=== PATIENT | female | born 1965 | race Caucasian/White ===

== ENCOUNTER 2024-06-21 10:44 | Emergency (ER) | payer MEDICARE ==
[2024-06-21] MEDS ORDERED: NA CHLORIDE 0.9% 1,000 ML ONE (11:43)
[2024-06-21] MEDS ORDERED: KETAMINE HCL IN 0.9 % NACL 50 MG/5 ML SYRINGE IV ONE (12:00)
[2024-06-21 12:09] LABS: Absolute Basophils 0.1 K/uL (0-0.5); Absolute Eosinophils 0.1 K/uL (0-0.5); Absolute Lymphocytes (CBC) 0.5 K/uL (0.7-4.9); Absolute Neutrophil 7.5 K/uL (1.8-8.0); Basophils % 0.9 % (0-1.3); Eosinophils % 0.7 % (0-4.4); Hematocrit 30.1 % (36.0-45.0); Lymphocytes % 5.1 % (15.3-44.8); MCH 24.4 pg (27.0-35.0); MCHC 33.4 g/dL (32.0-36.0); MPV 7.5 fL (7.6-11.3); Monocytes % 11.4 % (3.3-12.3); Neutrophils % 81.9 % (41.7-73.7); Nucleated Red Blood Cells % 0.2 % (0-0); Platelets 363 thou/uL (152-406); RBC Red Blood Cell Count 4.12 M/uL (3.86-4.86); Red Cell Distribution Width 18.5 % (12.1-15.2)
[2024-06-21 12:26] LABS: Albumin 2.7 g/dL (3.4-5.0); Albumin/Globulin Ratio 0.6 (1.1-1.8); Anion Gap 9.3 mEq/L (5.0-15.0); Bilirubin Total 0.6 mg/dL (0.2-1.0); Globulin 4.9 g/dL (2.3-3.5); Potassium 4.3 mEq/L (3.5-5.1); Protein, Total 7.6 g/dL (6.4-8.2)
[2024-06-21] MEDS ORDERED: FENTANYL CITR 100 MCG/2 ML ONE (12:46)
--- NOTE | 2024-06-21 12:48 | RAD REPORT ---
EXAMINATION: CT Abdomen Pelvis W Contrast CLINICAL INDICATION: Female, 58 years old. ABD PAIN TECHNIQUE: CT abdomen and pelvis was performed, after the administration of IV contrast, [facility]. Axial, sagittal and coronal reconstructions were obtained. One or more of the following dose reduction techniques were used: Automated exposure control, adjustment of the mA and k V according to patient size, and iterative reconstruction. Unless otherwise specified, incidental findings do not require dedicated imaging follow-up. COMPARISON: No prior exam. FINDINGS: LOWER CHEST: The visualized lung bases are clear. LIVER: Normal in size and contour. No focal lesion. BILIARY SYSTEM: No suspicious abnormalities. SPLEEN: Diffuse splenomegaly, with spleen measuring 18.9 cm in long [place], with no focal lesions. PANCREAS: No mass, ductal dilation, or jose-pancreatic fluid. ADRENALS: Normal; no mass. KIDNEYS: Normal size and contour. No hydronephrosis. Small subcentimeter left cortical hypoattenuatin g lesions, suggestive of cysts, not well characterized. URINARY BLADDER: Decompressed limiting evaluation. GASTROINTESTINAL TRACT: No evidence of free air, significant intra-abdominal free fluid, bowel obstru ction or abscess. Sigmoid diverticulosis without evidence of acute diverticulitis. APPENDIX: Normal appendix, retrocecal. LYMPH NODES: Bulky matted retroperitoneal lymph nodes, with the largest jackelyn mass seen in the left u pper para-aortic space measuring 5.2 x 4.9 cm. Largest mass at the level of the left common iliac artery measures 4.0 x 3.4 cm. Largest mass at the level of the right common iliac artery measures 2.9 x 2.4 cm. Enlarged epigastric nodes as well largest measuring 2.1 x 2.7 cm. Enlarged darlin hepatis nodes largest measuring 2.9 x 2.7 cm. Enlarged bilateral pelvic sidewall/iliac chain lymph nodes larg est on the right measuring 3.7 x 2.1 cm, and on the left measuring 3.3 x 1.8 cm. Nodular deposits along the posterior right perinephric fascia, measuring 1.8 x 1.4 cm. Enlarged mesenteric lymph nodes largest at the root measuring 3.5 x 2.5 cm. The nodes encase aortic branches and IVC tributaries, with some segmental narrowing but no discrete occlusion. Enlarged posterior mediastinal nodes along t he lower descending thoracic aorta largest on the right measures 1.7 cm. Enlarged epicardial lymph node measuring 1.3 cm. Small inguinal lymph nodes, largest on the left measuring up to 9 mm in short axis. MUSCULOSKELETAL: No acute or suspicious osseous abnormality. ADDITIONAL FINDINGS: None. IMPRESSION: Bulky adenopathy throughout the retroperitoneum, mesentery, right perinephric space, posterior medias tinum, and epicardial space, with splenomegaly, concerning for a lymphoproliferative disorder such as lymphoma. No other acute findings. Incidental findings including sigmoid diverticulosis.
--- NOTE | 2024-06-21 14:06 | EDPHYS ---
Physician Documentation [facility] Name: María Elena Villegas Age: 58 yrs Sex: Female : 1965 Arrival Date: 06/21/2024 Time: 10:44 Bed 15 Private MD: ED Physician Hugo Mosqueda HPI: 06/21 14:06 This 58 yrs old Female presents to ER via Ambulatory with complaints of Abdominal Pain, ms3 Back Pain. 14:06 58-year-old female with past medical history of breast cancer, vulvar cancer, basal ms3 cell cancer, lymphoma presents to the emergency department for abdominal pain back pain that began on June 09. Patient states she had a colonoscopy that was performed on June 08. Patient was sent from Dr. Swain's office for abdominal pain and concern for bowel perforation. Patient endorses nausea. Patient denies vomiting or chills. Patient states her pain is a 10/10 . Historical: - Allergies: 11:27 Codeine; iw 11:27 Hydrocodone-Acetaminophen; iw - PMHx: 11:27 breast cancer; vulvar cancer; basal cell cancer; iw - PSHx: 11:27 lumpectomy-left; stents in legs; iw - Immunization history:: Adult Immunizations unknown. - Infectious Disease History:: Denies. - Social history:: Smoking status: unknown. ROS: 14:06 Constitutional: Negative for fever, and chills. Cardiovascular: Negative for chest ms3 pain, and palpitations. Respiratory: Negative for shortness of breath, cough, wheezing, and pleuritic chest pain, 14:06 MS/Extremity: Negative for injury and deformity, Skin: Negative for injury, rash, and discoloration, 14:06 Abdomen/GI: Positive for abdominal pain, nausea, 14:06 Back: Positive for back pain, Exam: 14:06 Constitutional: This is a well developed, well nourished patient who is awake, alert, ms3 and in no acute distress. Cardiovascular: Regular rate and rhythm with a normal S1 and S2. No gallops, murmurs, or rubs. Normal PMI, no JVD. No pulse deficits. Respiratory: Lungs have equal breath sounds bilaterally, clear to auscultation and percussion. No rales, rhonchi or wheezes noted. No increased work of breathing, no retractions or nasal flaring. Skin: Warm, dry with normal turgor. Normal color with no rashes, no lesions, and no evidence of cellulitis. 14:06 Abdomen/GI: Inspection: abdomen appears normal, Bowel sounds: normal, Palpation: moderate abdominal tenderness, in all quadrants, Vital Signs: 11:31 BP 130 / 67; Pulse 94; Resp 16; Temp 98.1; Pulse Ox 99% ; Weight 58.97 kg; Height 5 ft. iw 4 in. ; Pain 10/10; 12:04 Pulse 91; Resp 18; Pulse Ox 98% on R/A; ph 13:40 BP 121 / 67; Pulse 95; Resp 18; Pulse Ox 100% on R/A; ph 14:30 BP 132 / 68; Pulse 91; Resp 18; Pulse Ox 99% on R/A; ph 11:31 Body Mass Index 22.31 (58.97 kg, 162.56 cm) iw 11:31 Pain Scale: Adult iw MDM: 11:45 Medical Screening Exam initiated ms3 14:06 Differential diagnosis: Neoplasm Bowel perforation vs Obstruction. Data reviewed: vital ms3 signs, nurses notes, lab test result(s), radiologic studies, and as a result, I will discharge patient. Management of patient was discussed with the following: Creative Writing Teacher: Dr Mckeon- Recommends 25 mcg Fentanyl patch and he will see patient in clinic. Discussed case with Dr Swain- no bowel perforation.. I considered the following discharge prescriptions or medication management in the emergency department Medications were administered in the Emergency Department. See MAR. Historians other than the Patient: Spouse/Significant Other: Patient's . Counseling: I had a detailed discussion with the patient and/or guardian regarding the historical points, exam findings, and any diagnostic results supporting the discharge/admit diagnosis, lab results, radiology results, the need for outpatient follow up, to return to the emergency department if symptoms worsen or persist or if there are any questions or concerns that arise at home. Special discussion: Based on the patient's Hx, exam, and Dx evaluation, there is no indication for emergent surgery or inpatient Tx. It is understood by the patient/guardian that if the Sx's persist or worsen they need to return immediately for re-evaluation. ED course: On reevaluation patient is alert and oriented x 4, no apparent distress, nontoxic-appearing, speaking full sentences. Pain improved at this time. Discussed labs, imaging with the patient and her . Mild anemia on CBC. No signs of infection at this time. Patient to follow-up with Dr. Collado in 1-2 days. All questions were answered. Return precautions discussed include worsening symptoms, or any other concerns.. 06/21 11:45 Order name: CBC with Diff; Complete Time: 12:45 ms3 06/21 11:45 Order name: CMP; Complete Time: 12:45 ms3 06/21 11:45 Order name: Lipase; Complete Time: 12:45 ms3 06/21 11:46 Order name: CT Abd/Pelvis - IV Contrast Only; Complete Time: 12:49 ms3 06/21 11:27 Order name: Labs collected and sent; Complete Time: 12:05 ms3 06/21 11:27 Order name: O2 Per Protocol; Complete Time: 12:05 ms3 06/21 11:27 Order name: O2 Sat Monitoring; Complete Time: 12:05 ms3 06/21 11:27 Order name: Vital Signs; Complete Time: 12:05 ms3 06/21 11:45 Order name: IV Saline Lock; Complete Time: 12:04 ms3 06/21 11:45 Order name: Labs collected and sent; Complete Time: 12:04 ms3 Administered Medications: 12:13 Drug: NS 0.9% IV (30 ml/kg) 30 ml/kg IV at bolus once; Sepsis Protocol; to be given as ph a bolus over 90 minutes Route: IV; Rate: bolus; Site: right antecubital; 13:30 Follow up: Response: No adverse reaction; IV Status: Completed infusion; IV Intake: ph 1000ml 12:13 Drug: Ketamine IVP 10 mg IVP once Route: IVP; Site: right antecubital; ph 14:50 Follow up: Response: No adverse reaction ph 12:52 Drug: fentaNYL (PF) IVP 50 mcg IVP once Route: IVP; Site: right antecubital; ph 14:50 Follow up: Response: No adverse reaction ph 14:15 Drug: fentaNYL Transdermal Patch (25 mcg/hr) 1 patches Transdermal once Route: ph Transdermal; Site: anterior chest wall; 14:51 Follow up: Response: No adverse reaction ph Disposition Summary: 06/21/24 14:05 Discharge Ordered Notes: Location: Home ms3 Condition: Stable ms3 Diagnosis - Abdominal pain, Generalized ms3 - Lymphoma ms3 Followup: ms3 - With: Private Physician - When: 1 - 2 days - Reason: Re-evaluation by your physician Discharge Instructions: - Discharge Summary Sheet ms3 - Abdominal Pain, Adult ms3 Forms: - Medication Reconciliation Form ms3 - Antibiotic Education ms3 - Prescription Opioid Use ms3 - Patient Portal Instructions ms3 - Leadership Thank You Letter ms3 Prescriptions: - Narcan 4 mg/actuation Nasal spray, non-aerosol - spray 1 spray INTRANASAL route every 2 minutes spray 1 dose into ONE nostril; ms3 alternate nostrils w each dose until help arrives; 1 unit; Refills: 0, Product Selection Permitted Signatures: Dispatcher [employer] Billie Santacruz RN RN iw Jenni Diaz RN RN Hugo Herron DO DO ms3 Corrections: (The following items were deleted from the chart) 11:35 11:27 Accucheck ordered. ms3 bd 11:35 11:27 IV Saline Lock - Large Bore ordered. ms3 bd 11:35 11:33 IV Saline Lock ordered. ms3 bd 11:36 11:27 EKG - Nurse/Tech ordered. ms3 bd 11:39 11:27 CBC+H.LAB.BRZ ordered. EDMS EDMS 11:39 11:27 COMPREHENSIVE METABOLIC PANEL+C.LAB.BRZ ordered. EDMS EDMS 11:39 11:27 LACTATE+C.LAB.BRZ ordered. EDMS EDMS 11:39 11:27 PROTIME (+INR)+COAG.LAB.BRZ ordered. EDMS EDMS 11:39 11:27 PTT, ACTIVATED+COAG.LAB.BRZ ordered. EDMS EDMS 11:40 11:27 BLOOD CULTURE*+BA.LAB.BRZ ordered. EDMS EDMS 11:40 11:27 Urinalysis+U.LAB.BRZ ordered. EDMS EDMS 11:48 11:33 Abdomen Pelvis W Con+CT.RAD.BRZ ordered. EDMS EDMS 14:15 14:06 ED course: Discussed labs, imaging with the patient and her . Mild anemia ms3 on CBC. No signs of infection at this time. All questions were answered. Return precautions discussed include worsening symptoms, or any other concerns.. ms3
--- NOTE | 2024-06-21 14:06 | ER ---
Nurse's Notes [facility] Name: María Elena Villegas Age: 58 yrs Sex: Female : 1965 Arrival Date: 06/21/2024 Time: 10:44 Bed 15 Private MD: Diagnosis: Abdominal pain, Generalized;Lymphoma Presentation: 06/21 11:29 Chief complaint: Patient states: has had back pain since her colonoscopy on June 08 iw , hx of breast cancer, vulvar cancer, basal cell carcinoma, she's had previous polyps removed , they snipped some polyps this time, was done at [facility] . Dr. Mckeon, thought there was an issue with her kidneys. Coronavirus screen: At this time, the client does not indicate any symptoms associated with coronavirus-19. Ebola Screen: No symptoms or risks identified at this time. Initial Sepsis Screen: Does the patient meet any 2 criteria? No. Patient's initial sepsis screen is negative. Does the patient have a suspected source of infection? No. Patient's initial sepsis screen is negative. Risk Assessment: Do you want to hurt yourself or someone else? Patient reports no desire to harm self or others. 11:29 Method Of Arrival: Ambulatory iw 11:29 Acuity: GEORGIE 3 iw 11:31 Onset of symptoms was June 08, 2024. iw Historical: - Allergies: 11:27 Codeine; iw 11:27 Hydrocodone-Acetaminophen; iw - PMHx: 11:27 breast cancer; vulvar cancer; basal cell cancer; iw - PSHx: 11:27 lumpectomy-left; stents in legs; iw - Immunization history:: Adult Immunizations unknown. - Infectious Disease History:: Denies. - Social history:: Smoking status: unknown. Screenin:02 [facility] ED Fall Risk Assessment (Adult) History of falling in the last 3 months, ph including since admission No falls in past 3 months (0 pts) Confusion or Disorientation No (0 pts) Intoxicated or Sedated No (0 pts) Impaired Gait No (0 pts) Mobility Assist Device Used No (0 pt) Altered Elimination No (0 pt) Score/Fall Risk Level 0 - 2 = Low Risk Oriented to surroundings, Maintained a safe environment, Hourly rounding (assess needs \T\ fall precautionary measures) done. Abuse screen: Denies threats or abuse. Denies injuries from another. Nutritional screening: No deficits noted. Tuberculosis screening: No symptoms or risk factors identified. Assessment: 12:03 General: Appears in no apparent distress. uncomfortable, well groomed, Behavior is ph calm, cooperative, appropriate for age. Pain: Complains of pain in back and abdomen. Neuro: Level of Consciousness is awake, alert, obeys commands, Oriented to person, place, time, situation. Cardiovascular: Capillary refill < 3 seconds in bilateral fingers Patient's skin is warm and dry. Respiratory: Airway is patent Respiratory effort is even, unlabored. GI: Abdomen is round non-distended, Bowel sounds present X 4 quads. Abd is soft X 4 quads Reports lower abdominal pain, upper abdominal pain. Derm: Skin is pink, warm \T\ dry. Vital Signs: 11:31 BP 130 / 67; Pulse 94; Resp 16; Temp 98.1; Pulse Ox 99% ; Weight 58.97 kg; Height 5 ft. iw 4 in. ; Pain 10/10; 12:04 Pulse 91; Resp 18; Pulse Ox 98% on R/A; ph 13:40 BP 121 / 67; Pulse 95; Resp 18; Pulse Ox 100% on R/A; ph 14:30 BP 132 / 68; Pulse 91; Resp 18; Pulse Ox 99% on R/A; ph 11:31 Body Mass Index 22.31 (58.97 kg, 162.56 cm) iw 11:31 Pain Scale: Adult iw ED Course: 10:46 Patient arrived in ED. mr 11:09 Hugo Mosqueda DO is Attending Physician. ms3 11:31 Triage completed. iw 11:32 Arm band placed on. iw 11:41 Jenni Diaz, RN is Primary Nurse. ph 12:02 Initial lab(s) drawn, by az, sent to lab. Inserted saline lock: 20 gauge in right ph antecubital area, using aseptic technique. Blood collected. Flushed with 10 mL NS. 12:03 Patient has correct armband on for positive identification. Bed in low position. Call ph light in reach. Side rails up X 1. Pulse ox on. NIBP on. Door closed. Noise minimized. Warm blanket given. 12:04 CBC with Diff Sent. ph 12:04 CMP Sent. ph 12:04 Lipase Sent. ph 12:05 CT Abd/Pelvis - IV Contrast Only In Process Unspecified. EDMS 14:51 No provider procedures requiring assistance completed. IV discontinued, intact, ph bleeding controlled, No redness/swelling at site. Pressure dressing applied. Administered Medications: 12:13 Drug: NS 0.9% IV (30 ml/kg) 30 ml/kg IV at bolus once; Sepsis Protocol; to be given as ph a bolus over 90 minutes Route: IV; Rate: bolus; Site: right antecubital; 13:30 Follow up: Response: No adverse reaction; IV Status: Completed infusion; IV Intake: ph 1000ml 12:13 Drug: Ketamine IVP 10 mg IVP once Route: IVP; Site: right antecubital; ph 14:50 Follow up: Response: No adverse reaction ph 12:52 Drug: fentaNYL (PF) IVP 50 mcg IVP once Route: IVP; Site: right antecubital; ph 14:50 Follow up: Response: No adverse reaction ph 14:15 Drug: fentaNYL Transdermal Patch (25 mcg/hr) 1 patches Transdermal once Route: ph Transdermal; Site: anterior chest wall; 14:51 Follow up: Response: No adverse reaction ph Medication: 12:02 VIS not applicable for this client. ph Intake: 13:30 IV: 1000ml; Total: 1000ml. ph Outcome: 14:05 Discharge ordered by . ms3 14:52 Discharged to home ambulatory, with significant other, ph 14:52 Condition: good 14:52 Discharge instructions given to patient, Instructed on discharge instructions, follow up and referral plans. medication usage, Demonstrated understanding of instructions, follow-up care, medications, Prescriptions given X 1, 14:52 Patient left the ED. ph Signatures: Dispatcher [employer] EDMS Elsy Rasmussen, Reg Reg mr Billie Soria, RN RN iw Jenni Diaz RN RN ph Hugo Mosqueda DO DO ms3 Corrections: (The following items were deleted from the chart) 11:32 11:29 Chief complaint: Patient states: has had back pain since her colonoscopy on May , hx of breast cancer, vulvar cancer, basal cell carcinoma, she's had previous polyps removed , they snipped some polyps this time, was done at [facility] 11:33 11:31 BP 130 / 67; Pulse 94bpm; Resp 16bpm; Pulse Ox 99%; Temp 98.1F; iw iw 14:50 14:49 fentaNYL Transdermal Patch (25 mcg/hr) 1 patches Transdermal in anterior chest ph wall ph
[2024-06-21] MEDS ORDERED: FENTANYL 25 MCG/PATCH TD ONE (14:23)
[2024-06-21 15:01] VITALS: TEMP 98.1
[2024-06-21 15:06] VITALS: BP 132/68; O2SAT 99
== END 2024-06-21 14:52 | disposition home or self-care (01) ==
LOC: ER 10:44
DX: R10.84 Generalized abdominal pain (principal); C85.90 Non-Hodgkin lymphoma, unspecified, unspecified site; Z85.3 Personal history of malignant neoplasm of breast; Z85.828 Personal history of other malignant neoplasm of skin; Z85.44 Personal history of malignant neoplasm of other female genital organs; Z88.5 Allergy status to narcotic agent
CPT/HCPCS: 36415; 74177; 80053; 83690; 85025; 96365; 96375; 99284; J3010; J7030; Q9967

== ENCOUNTER 2024-10-18 09:27 | Emergency (ER) | payer MEDICARE ==
[2024-10-18] MEDS ORDERED: NA CHLORIDE 0.9% 1,000 ML ONE ×2 (09:37→11:56)
[2024-10-18] MEDS ORDERED: ONDANSETRON 4 MG/2 ML VIAL ONE (09:41)
[2024-10-18 10:10] LABS: Absolute Lymphocytes (CBC) 0.2 K/uL (0.7-4.9); Hematocrit 22.3 % (36.0-45.0); Hemoglobin 7.6 g/dL (12.0-15.0); MCH 25.1 pg (27.0-35.0); MCHC 34.2 g/dL (32.0-36.0); MCV 73.3 fL (80-100); MPV 6.5 fL (7.6-11.3); Nucleated RBC Absolute Count 0.0 (0-0); Nucleated Red Blood Cells % 0.0 % (0-0); RBC Red Blood Cell Count 3.04 M/uL (3.86-4.86); White Blood Count 6.40 thou/uL (4.3-10.9)
[2024-10-18 10:29] LABS: ALT/SGPT < 14 U/L (13-56); AST/SGOT 24 U/L (15-37); Albumin 2.2 g/dL (3.4-5.0); Albumin/Globulin Ratio 0.6 (1.1-1.8); Alkaline Phosphatase 197 U/L (45-117); Anion Gap 8.7 mEq/L (5.0-15.0); BUN Blood Urea Nitrogen 19 mg/dL (7-18); Bilirubin Indirect, Calculated 0.3 mg/dL (0.2-0.8); Globulin 4.0 g/dL (2.3-3.5); Glucose Level 125 mg/dL (74-106); Magnesium 1.9 mg/dL (1.6-2.4); NT PRO-BNP 1645 pg/mL (<125); Potassium 3.7 mEq/L (3.5-5.1); Troponin High Sensitivity 30.4 pg/mL (<58.9)
[2024-10-18 10:38] LABS: PT Prothrombin Time 15.6 SECONDS (10-13.0); Protime INR 1.39
--- NOTE | 2024-10-18 11:30 | RAD REPORT ---
EXAMINATION: ONE VIEW CHEST XR CLINICAL INDICATION: Female, 59 years old.,weakness TECHNIQUE: Frontal chest projection is submitted. Examination is limited by patient positioning and t echnique. COMPARISON: 10/13/2024 FINDINGS: Patchy bibasilar opacities are stable with improving component of effusion at the right base. Central prominence also shows mild interval improvement. Trace left apical pneumothorax persists. Right Port-A-Cath unchanged in position. The heart is normal in size. Mediastinal contours are unremarkable . IMPRESSION: Improving right pleural-parenchymal basilar opacity. Otherwise stable findings including trace left a pical pneumothorax..
[2024-10-18 12:17] LABS: Blood Morphology Comment NOTED (NOT SEEN); Teardrop Cell FEW; White Blood Cell Scan OK (OK)
[2024-10-18 12:19] LABS: Microcytosis 1+; Ovalocytes SLIGHT
--- NOTE | 2024-10-18 12:53 | EDPHYS ---
Physician Documentation [facility] Name: María Elena Villegas Age: 59 yrs Sex: Female : 1965 Arrival Date: 10/18/2024 Time: 09:27 Bed 14 Private MD: ED Physician Alfredo Luna HPI: 10/18 09:42 This 59 yrs old Female presents to ER via Wheelchair with complaints of Blood Pressure sp3 Problem. 09:42 58-year-old female with history of breast cancer, lymphoma currently being treated with sp3 Dr. Sheppard office presents to the ED with chief complaint low blood pressure and dehydration with pulse in the 120s at home. The states that blood pressure was down to 80. However once they have arrived here it is improved. Patient has no real complaint other than being tired. She is on active chemotherapy. She denies any fever, headache, neck pain, chest pain, shortness breath, abdominal pain, vomiting, diarrhea, or any other signs or symptoms on ROS at this time.. . Historical: - Allergies: 09:40 Codeine; ap3 09:40 Hydrocodone-Acetaminophen; ap3 - PMHx: 09:40 Basal cell cancer; breast cancer; High Cholesterol; LYMPHOMA; vulvar cancer; ap3 - PSHx: 09:40 lumpectomy-left; stents in legs; ap3 - Immunization history:: Adult Immunizations up to date. - Infectious Disease History:: Denies. - Social history:: Smoking status: Patient denies any tobacco usage or history of. ROS: 09:42 Constitutional: Negative for fever, chills, and weight loss, Eyes: Negative for injury, sp3 pain, redness, and discharge, Neck: Negative for injury, pain, and swelling, Respiratory: Negative for shortness of breath, cough, wheezing, and pleuritic chest pain, Back: Negative for injury and pain, Skin: Negative for injury, rash, and discoloration, Neuro: Negative for headache, weakness, numbness, tingling, and seizure, Psych: Negative for depression, anxiety, suicide ideation, homicidal ideation, and hallucinations, Allergy/Immunology: Negative for hives, rash, and allergies, 09:42 All other systems are negative, Exam: 09:42 Head/Face: Normocephalic, atraumatic. Eyes: Pupils equal round and reactive to light, sp3 extra-ocular motions intact. Lids and lashes normal. Conjunctiva and sclera are non-icteric and not injected. Cornea within normal limits. Periorbital areas with no swelling, redness, or edema. ENT: Nares patent. No nasal discharge, no septal abnormalities noted. External auditory canals are clear. Oropharynx with no redness, swelling, or masses, exudates, or evidence of obstruction, uvula midline. Mucous membranes moist. Neck: Trachea midline, no thyromegaly or masses palpated, and no cervical lymphadenopathy. Supple, full range of motion without nuchal rigidity, or vertebral point tenderness. No Meningismus. Chest/axilla: Normal chest wall appearance and motion. Nontender with no deformity. No lesions are appreciated. Respiratory: Lungs have equal breath sounds bilaterally, clear to auscultation and percussion. No rales, rhonchi or wheezes noted. No increased work of breathing, no retractions or nasal flaring. Abdomen/GI: Soft, non-tender, with normal bowel sounds. No distension or tympany. No guarding or rebound. No evidence of tenderness throughout. Back: No spinal tenderness. No costovertebral tenderness. Full range of motion. Skin: Warm, dry with normal turgor. Normal color with no rashes, no lesions, and no evidence of cellulitis. Neuro: Awake and alert, GCS 15, oriented to person, place, time, and situation. Cranial nerves II-XII grossly intact. Motor strength 5/5 in all extremities. Sensory grossly intact. Cerebellar exam normal. Normal gait. 09:42 Constitutional: The patient appears Patient globally weak with no focal deficits. 09:42 Cardiovascular: Rate: tachycardic, 10:26 ECG was reviewed by the Attending Physician. EKG demonstrates sinus tachycardia at 113 sp3 bpm with normal intervals, normal QRS, nonspecific diffuse ST/T changes without evidence of acute ischemia. Vital Signs: 09:38 BP 111 / 62; Pulse 112; Resp 19; Pulse Ox 100% on 2 lpm NC; Weight 47.63 kg; Height 5 ap3 ft. 4 in. ; 09:40 Temp 97.8(O); kc6 10:48 BP 95 / 52; Pulse 105; Resp 25 S; Pulse Ox 100% on 3 lpm NC; kc6 11:20 BP 101 / 63; Pulse 99; Resp 16 S; Pulse Ox 100% on 3 lpm NC; kc6 12:22 BP 90 / 53; Pulse 97; Resp 19 S; Pulse Ox 10% on 3 lpm NC; kc6 09:38 Body Mass Index 18.02 (47.63 kg, 162.56 cm) ap3 MDM: 09:37 Medical Screening Exam initiated sp3 09:43 Data reviewed: vital signs, nurses notes, old medical records, lab test result(s), EKG, sp3 radiologic studies. ED course: 59-year-old female with PMH above with known cancer now presents with generalized weakness. Differential diagnosis includes chemotherapy-induced side effects, dehydration, ACS, electrolyte abnormality, UTI, among others. Workup will include general labs, chest x-ray, EKG, UA and general supportive care with IV fluids and further medications as indicated. Disposition pending workup and patient course.. 11:51 ED course: Patient feeling better heart rate in the upper 90s. Hemoglobin 7.6. Patient sp3 will wait to get transfused in the office as needed. No acute GI blood loss. 1 more liter normal saline and we will safely discharge patient home.. 10/18 09:41 Order name: Basic Metabolic Panel; Complete Time: 11:43 sp3 10/18 09:41 Order name: CBC with Diff sp3 10/18 09:41 Order name: LFT's; Complete Time: 11:43 sp3 10/18 09:41 Order name: Magnesium; Complete Time: 11:43 sp3 10/18 09:41 Order name: NT PRO-BNP; Complete Time: 11:43 sp3 10/18 09:41 Order name: PT-INR; Complete Time: 11:43 sp3 10/18 09:41 Order name: Troponin HS; Complete Time: 11:43 sp3 10/18 09:41 Order name: CK; Complete Time: 11:43 sp3 10/18 09:41 Order name: Lactate w/ 2H reflex if indic.; Complete Time: 11:43 sp3 10/18 12:18 Order name: CBC Smear Scan EDMS 10/18 09:41 Order name: XRAY Chest (1 view); Complete Time: 11:43 sp3 10/18 09:41 Order name: Cardiac monitoring; Complete Time: 09:44 sp3 10/18 09:41 Order name: EKG - Nurse/Tech; Complete Time: 09:44 sp3 10/18 09:41 Order name: IV Saline Lock; Complete Time: 10:11 sp3 10/18 09:41 Order name: Labs collected and sent; Complete Time: 10:23 sp3 10/18 09:41 Order name: O2 Per Protocol; Complete Time: 09:44 sp3 10/18 09:41 Order name: O2 Sat Monitoring; Complete Time: 09:44 sp3 Administered Medications: 10:11 Drug: NS 0.9% IV 1000 ml IV at 1 bolus Per protocol; to be given as a bolus over 60 kc6 minutes Route: IV; Rate: 1 bolus; Site: right forearm; 12:04 Follow up: Response: No adverse reaction; IV Status: Completed infusion; IV Intake: kc6 1000ml 10:11 Drug: Ondansetron IVP 4 mg IVP once; over 2 minutes Route: IVP; Site: right forearm; kc6 10:49 Follow up: Response: No adverse reaction; Nausea is decreased kc6 12:04 Drug: NS 0.9% IV 1000 ml IV at 1000 ml once; to be given as a bolus over 60 minutes kc6 Route: IV; Rate: 1000 ml; Site: right forearm; 13:11 Follow up: Response: No adverse reaction; IV Status: Completed infusion; IV Intake: kc6 1000ml Disposition Summary: 10/18/24 12:53 Discharge Ordered Notes: Location: Home sp3 Condition: Stable sp3 Diagnosis - Dehydration, chemotherapy side effect, anemia sp3 Followup: sp3 - With: Private Physician - When: Upon discharge from the Emergency Department - Reason: Continuance of care Discharge Instructions: - Discharge Summary Sheet sp3 - Managing Chemotherapy Side Effects, Adult sp3 Forms: - Medication Reconciliation Form sp3 - Antibiotic Education sp3 - Prescription Opioid Use sp3 - Patient Portal Instructions sp3 - Leadership Thank You Letter sp3 Signatures: Dispatcher [employer] Nargis Lucas RN RN ap3 Alfredo Luna MD MD sp3 Juany Hickman RN RN kc6 Corrections: (The following items were deleted from the chart) 09:42 09:42 BASIC METABOLIC PANEL+C.LAB.BRZ ordered. EDMS EDMS 09:42 09:42 CBC+H.LAB.BRZ ordered. EDMS EDMS 09:42 09:42 HEPATIC FUNCTION+C.LAB.BRZ ordered. EDMS EDMS 09:42 09:42 MAGNESIUM+C.LAB.BRZ ordered. EDMS EDMS 09:42 09:42 PROBNP+C.LAB.BRZ ordered. EDMS EDMS 09:42 09:42 PROTIME (+INR)+COAG.LAB.BRZ ordered. EDMS EDMS 09:42 09:42 Troponin High Sensitivity+C.LAB.BRZ ordered. EDMS EDMS 09:42 09:42 CREATINE PHOSPHOKINASE+C.LAB.BRZ ordered. EDMS EDMS 09:42 09:42 LACTATE+C.LAB.BRZ ordered. EDMS EDMS 09:42 09:42 Chest Single View+RAD.RAD.BRZ ordered. EDMS EDMS 09:42 09:42 UA Rfx Musa Cult if indicated+U.LAB.BRZ ordered. EDMS EDMS
--- NOTE | 2024-10-18 12:53 | ER ---
Nurse's Notes [facility] Name: María Elena Villegas Age: 59 yrs Sex: Female : 1965 Arrival Date: 10/18/2024 Time: 09:27 Bed 14 Private MD: Diagnosis: Dehydration, chemotherapy side effect, anemia Presentation: 10/18 09:38 Chief complaint: Spouse and/or significant other states: patient was recently ap3 discharged from hospital, and his now having dark urine, low blood pressure and lower oxygen readings at home. Coronavirus screen: At this time, the client does not indicate any symptoms associated with coronavirus-19. Ebola Screen: No symptoms or risks identified at this time. Initial Sepsis Screen: Does the patient meet any 2 criteria? HR > 90 bpm. Does the patient have a suspected source of infection? No. Patient's initial sepsis screen is negative. Risk Assessment: Do you want to hurt yourself or someone else? Patient reports no desire to harm self or others. Onset of symptoms is unknown. 09:38 Method Of Arrival: Wheelchair ap3 09:38 Acuity: GEORGIE 2 ap3 Triage Assessment: 09:41 General: Appears ill, Behavior is calm. Neuro: Level of Consciousness is awake, alert, ap3 obeys commands, Oriented to person, place, time, situation, Appropriate for age. Cardiovascular: Patient's skin is warm and dry. Respiratory: Airway is patent patient is on 2 liters nasal canula from home. : Reports dark urine. Historical: - Allergies: 09:40 Codeine; ap3 09:40 Hydrocodone-Acetaminophen; ap3 - PMHx: 09:40 Basal cell cancer; breast cancer; High Cholesterol; LYMPHOMA; vulvar cancer; ap3 - PSHx: 09:40 lumpectomy-left; stents in legs; ap3 - Immunization history:: Adult Immunizations up to date. - Infectious Disease History:: Denies. - Social history:: Smoking status: Patient denies any tobacco usage or history of. Screenin:[facility] ED Fall Risk Assessment (Adult) History of falling in the last 3 months, kc6 including since admission No falls in past 3 months (0 pts) Confusion or Disorientation No (0 pts) Intoxicated or Sedated No (0 pts) Impaired Gait No (0 pts) Mobility Assist Device Used Yes (1 pt) Altered Elimination No (0 pt) Score/Fall Risk Level 0 - 2 = Low Risk Oriented to surroundings. Abuse screen: Denies threats or abuse. Denies injuries from another. Nutritional screening: No deficits noted. Tuberculosis screening: No symptoms or risk factors identified. Assessment: 09:41 General: Appears in no apparent distress. uncomfortable, slender, well groomed, kc6 cachectic, Behavior is calm, cooperative, appropriate for age, quiet, Reports feeling ill for > 3 days, fatigue for >3 days, Denies fever, chills. Pain: Denies pain. Neuro: Level of Consciousness is awake, alert, obeys commands, Oriented to person, place, time, situation, Appropriate for age. Cardiovascular: Denies chest pain, Heart tones S1 S2 present Capillary refill < 3 seconds Rhythm is sinus tachycardia. Respiratory: Reports cough that is productive, Airway is patent Trachea midline Respiratory effort is even, unlabored, Respiratory pattern is regular, symmetrical. GI: No signs and/or symptoms were reported involving the gastrointestinal system. : Denies burning with urination, pain with urination urinary frequency, urgency, Parent/caregiver report the patient having urine the color of coffee. EENT: No signs and/or symptoms were reported regarding the EENT system. Derm: Skin is intact, is fragile, is thin, with poor turgor Skin is dry, Skin is pale, Skin temperature is warm. Musculoskeletal: No signs and/or symptoms reported regarding the musculoskeletal system. Circulation, motion, and sensation intact. Range of motion: intact in all extremities. 10:48 Reassessment: Patient appears in no apparent distress at this time. No changes from kc6 previously documented assessment. Patient and/or family updated on plan of care and expected duration. Pain level reassessed. Patient is alert, oriented x 3, equal unlabored respirations, skin warm/dry/pink. 11:48 Reassessment: Patient appears in no apparent distress at this time. No changes from kc6 previously documented assessment. Patient and/or family updated on plan of care and expected duration. Pain level reassessed. Patient is alert, oriented x 3, equal unlabored respirations, skin warm/dry/pink. Vital Signs: 09:38 BP 111 / 62; Pulse 112; Resp 19; Pulse Ox 100% on 2 lpm NC; Weight 47.63 kg; Height 5 ap3 ft. 4 in. ; 09:40 Temp 97.8(O); kc6 10:48 BP 95 / 52; Pulse 105; Resp 25 S; Pulse Ox 100% on 3 lpm NC; kc6 11:20 BP 101 / 63; Pulse 99; Resp 16 S; Pulse Ox 100% on 3 lpm NC; kc6 12:22 BP 90 / 53; Pulse 97; Resp 19 S; Pulse Ox 10% on 3 lpm NC; kc6 09:38 Body Mass Index 18.02 (47.63 kg, 162.56 cm) ap3 ED Course: 09:30 Patient arrived in ED. al6 09:31 Alfredo Luna MD is Attending Physician. sp3 09:40 Juany Hickman RN is Primary Nurse. kc6 09:40 Triage completed. ap3 09:40 Patient has correct armband on for positive identification. Bed in low position. Call kc6 light in reach. Side rails up X2. Adult w/ patient. marketing support manager on. Pulse ox on. NIBP on. Door closed. Noise minimized. Lights dimmed. Warm blanket given. Pillow given. Verbal reassurance given. 09:40 Oxygen administration via nasal cannula \T\ 3L/min. kc6 09:44 Arm band placed on. kc6 09:51 EKG done, by player piano technician. ts3 10:28 XRAY Chest (1 view) In Process Unspecified. EDMS 13:11 No provider procedures requiring assistance completed. IV discontinued, intact, kc6 bleeding controlled, No redness/swelling at site. Pressure dressing applied. Administered Medications: 10:11 Drug: NS 0.9% IV 1000 ml IV at 1 bolus Per protocol; to be given as a bolus over 60 kc6 minutes Route: IV; Rate: 1 bolus; Site: right forearm; 12:04 Follow up: Response: No adverse reaction; IV Status: Completed infusion; IV Intake: kc6 1000ml 10:11 Drug: Ondansetron IVP 4 mg IVP once; over 2 minutes Route: IVP; Site: right forearm; kc6 10:49 Follow up: Response: No adverse reaction; Nausea is decreased kc6 12:04 Drug: NS 0.9% IV 1000 ml IV at 1000 ml once; to be given as a bolus over 60 minutes kc6 Route: IV; Rate: 1000 ml; Site: right forearm; 13:11 Follow up: Response: No adverse reaction; IV Status: Completed infusion; IV Intake: kc6 1000ml Medication: 13:12 VIS not applicable for this client. kc6 Intake: 12:04 IV: 1000ml; Total: 1000ml. kc6 13:11 IV: 1000ml; Total: 2000ml. kc6 Outcome: 12:53 Discharge ordered by MD. elder 13:11 Discharged to home via wheelchair, with significant other, kc6 13:11 Condition: improved 13:11 Discharge instructions given to patient, significant other, Instructed on discharge instructions, follow up and referral plans. Demonstrated understanding of instructions, follow-up care, 13:12 Patient left the ED. kc6 Signatures: Dispatcher [employer] Nargis Lucas RN RN [email or web address] Alfredo Luna MD MD sp3 Juany Hickman RN RN kc6 Rabia Brink Taisha ts3
[2024-10-18 13:27] VITALS: TEMP 97.8
[2024-10-18 13:33] VITALS: BP 90/53; O2SAT 10
== END 2024-10-18 13:12 | disposition home or self-care (01) ==
LOC: ER 09:27
DX: E86.0 Dehydration (principal); T45.1X5A Adverse effect of antineoplastic and immunosuppressive drugs, initial encounter; D64.9 Anemia, unspecified; C85.90 Non-Hodgkin lymphoma, unspecified, unspecified site; Z85.3 Personal history of malignant neoplasm of breast; Z85.89 Personal history of malignant neoplasm of other organs and systems
CPT/HCPCS: 36415; 71045; 80048; 80076; 82550; 83605; 83735; 83880; 84484; 85025; 85610; 96361; 96374; 99285; J2405; J7030